=== PATIENT | male | born 1985 | race Caucasian/White ===

== ENCOUNTER 2019-05-29 12:39 | Emergency (ER) | payer SELFPAY ==
[~2019-05-29] VITALS: Ht 188 cm; Wt 87.1 kg
[2019-05-29] MEDS ORDERED: HYDROCODONE/APAP 5/325MG 1 EACH TABLET ONE (13:25)
[2019-05-29] MEDS ORDERED: IBUPROFEN 600 MG TABLET PO ONE ×2 (13:26→13:30)
[2019-05-29] MEDS ORDERED: HYDROCODONE/APAP 5/325MG 1 EACH TABLET PO ONE (13:30)
[2019-05-29 13:48] VITALS: BP 112/74
== END 2019-05-29 13:53 | disposition home or self-care (01) ==
LOC: ER 12:42
DX: M54.41 Lumbago with sciatica, right side (principal)